=== PATIENT | male | born 1980 | race Caucasian/White ===

== ENCOUNTER 2020-01-04 19:13 | Emergency (ER) | payer OTHER, SELFPAY ==
[2020-01-04 19:14] VITALS: BP 131/82; PULSE 109; RESP 16; TEMP 36.4; O2SAT 97; BMI 34.4
[2020-01-04] MEDS: 0.9% Normal Saline 1,000 ML 1000 ML IV (19:50)
[2020-01-04] MEDS: Ondansetron 4 MG/2 ML Vial IV (19:51)
[2020-01-04] MEDS: Dicyclomine 20 MG/2 ML Vial IM (19:53)
[2020-01-04 19:58] LABS: Absolute Lymphocyte Count 1.21 X10^3/uL (0.83-4.51); Absolute Neutrophil Count 4.4 X10^3/uL (2.0-7.7); Basophil# 0.02 X10^3/uL; Basophil% 0.3 % (0-1); Eosinophil# 0.14 X10^3/uL; Eosinophils% 2.2 % (0-5); Hematocrit 52.5 % (40-54); Hemoglobin 17.6 g/dL (13.0-16.5); Lymphocyte # 1.21 X10^3/ul (4.0); Lymphocyte % 18.6 % (19-41); Mean Corp Hgb Conc 33.5 g/dL (32-36); Mean Corpuscular Hgb 27.8 pg (27.0-32.0); Mean Corpuscular Volume 83.1 fL (80-94); Mean Platelet Vol. 10.1 fl (6.2-12.0); Monocyte% 10.8 % (0-10); NRBC Flagged by Analyzer 0 % (0-5); Neutrophil # 4.41 X10^3/uL (2.7-7.7); Neutrophil % 67.8 % (47-70); Platelet Count 181 K/mm3 (150-450); RBC Distribution Width CV 13.2 % (11.6-14.6); RBC Distribution Width SD 39.9 fl (35.1-43.9); Red Blood Count 6.32 M/mm3 (4.6-6.2); White Blood Count 6.5 K/mm3 (4.4-11.0)
[2020-01-04 20:15] LABS: Anion Gap 3 (5-15); BUN 10 mg/dL (7-18); BUN/Creat Ratio 14.9 RATIO (10-20); Calcium,Total 8.4 mg/dL (8.5-10.1); Chloride 110 mmol/L (98-107); Creatinine, Serum 0.67 mg/dL (0.70-1.30); EST Glomerular Filtration Rate 140 mL/min (>60); Est Glom Filt Rate - Afr Amer 170 mL/min (>60); Estimated Creatinine Clearance 154.35 ml/min; Glucose 98 mg/dL (74-106); Potassium 3.7 mmol/L (3.5-5.1); Sodium Level 139 mmol/L (136-145)
--- NOTE | 2020-01-04 20:22 | CM.ED ---
SOCIAL WORK REASON FOR REFERRAL: NO PCP MET WITH PATIENT IN ROOM. INTRODUCED ROLE AND REASON FOR REFERRAL. PATIENT STATES DOES NOT HAVE PRIMARY CARE PHYSICIAN. LIST OF LOCAL PCP'S PROVIDED. PATIENT DENIES ANY FURTHER NEEDS AT THIS TIME. WADE GAONA, PRODUCT SUPPORT CONSULTANT.
--- NOTE | 2020-01-04 20:40 | ED.DCSUM_ITS ---
- ER Visit Summary Date of Service: 01/04/20 Chief Complaint: [Diarrhea] History of Present Illness: The patient is a 39 M [presents the emergency department complaint of diarrhea symptoms x3 days. Patient has been going quite frequently at times up to every 15 minutes. He complains of some intermittent diffuse abdominal cramping. He has had lots of nausea but no vomiting as of yet. He denies sick contacts. Has had decreased urine output. Patient states that he was on amoxicillin but that was about 6 months ago. No recent travel. Patient has no medical history. No prior surgical history. Denies eating any unusual or undercooked foods.] Physical Examination: [HEENT-PERRLA, EOMI. Cranial nerves II through XII grossly intact. TMs clear. Mucous membranes moist. No adenopathy. Cardiovascular-regular rate and rhythm without murmur or ectopy Lungs-clear to auscultation, chest wall stable without crepitus or subcu emphysema Abdomen-normoactive bowel sounds, soft. Patient has some mild diffuse tenderness on exam. There is no rebound, rigidity, or peritoneal signs. Extremities-intact ?4, normal range of motion, normal pulses, atraumatic] Test Results: [CBC with differential obtained was normal. Chemistries unremarkable.] Emergency Department Course and Treatment: [He was given a liter mostly fluid bolus. Patient given Zofran 4 mg IV. Patient was given Bentyl 20 mg IM. Stool culture was ordered for enteric pathogens however he was unable to get a sample in the department. Patient does not want me to write him a prescription to bring a sample in. I suspect likely viral etiology.] Treatment Plan: [Follow-up with primary care physician project production engineer for no doc. Patient advised to return if persistent diarrhea, vomiting, worsening abdominal pain, or condition should worsen anyway.] Given a prescription for Zofran and Bentyl. Advised to use Imodium as needed for diarrhea. Disposition: [Discharged home in stable condition] Impression: [Diarrhea-viral] This note was generated with [employer] dictation software. It may contain incorrect words, spelling, and punctuation that were not noted in review of the chart nathalie or to signing ED Disposition - Plan for ED Patient: Referrals: Care Physician,No Primary [Primary Care Provider] -
--- NOTE | 2020-01-04 20:44 | ED.DEP ---
ED Disposition - Plan for ED Patient: Instructions: GASTROENTERITIS, Viral (7y-Adult) Prescriptions: Dicyclomine HCl [Bentyl] 20 mg PO TIDAC #20 cap Prescription Printed Ondansetron [Zofran Odt] 4 mg PO Q8H PRN PRN #10 tab PRN Reason: Nausea Prescription Printed Referrals: Care Physician,No Primary [Primary Care Provider] - Josue Kunz MD [STAFF PHYSICIAN] - 3-5 Days
[2020-01-04 20:51] VITALS: BP 117/70; PULSE 85; RESP 18; O2SAT 98
== END 2020-01-04 20:55 | disposition home or self-care (01) ==
LOC: ED 19:46
PROVIDERS: Emergency Provider Emergency Medicine
DX: A08.4 Viral intestinal infection, unspecified (principal); F17.290 Nicotine dependence, other tobacco product, uncomplicated
CPT/HCPCS: 80048; 85025; 96361; 96372; 96374; 99283; J7030; J2405

== ENCOUNTER 2021-03-19 06:53 | Emergency (ER) | payer OTHER, SELFPAY ==
[2021-03-19 06:53] VITALS: BP 159/95; PULSE 87; RESP 18; TEMP 36.2; O2SAT 98; BMI 34.9
--- NOTE | 2021-03-19 07:03 | VDLE_ITS ---
Reason For Study: Pain RIGHT GSV is normal. CFV is compressible, spontaneous, phasic, competent and demonstrates normal augmentation. FV is compressible, spontaneous, phasic, competent and demonstrates normal augmentation. POP V is compressible, spontaneous, phasic, competent and demonstrates normal augmentation. T/P Trunk is compressible. PTV is compressible. RT PerV is compressible. Procedure This is a venous duplex using B-mode, color flow and spectral Doppler. Exam performed portable in ED. A preliminary report was called and/or faxed to [facility]. VL/Venous Duplex US, Unilateral Interpretation Summary There is no evidence of right lower extremity deep vein thrombosis. Right great saphenous vein appears patent and compressible segmentally. Ordering Physician: Nura Gorman Performed By: Mariama Ly RVT
--- NOTE | 2021-03-19 07:03 | RAD_ITS ---
STUDY: X-RAY - RIGHT KNEE REASON FOR EXAM: Right knee pain, no specific injury. TECHNIQUE: 4 view(s) of the knee. COMPARISON: None. FINDINGS: Normal visualized distal femur. Normal visualized proximal tibia and fibula. Normal proximal tibiofibular articulation. There is mild joint space narrowing of the medial femorotibial compartment. Normal lateral femorotibial compartment. Normal patellofemoral articulation. The soft tissue structures are unremarkable. RAD/Knee 4 or More Views IMPRESSION: Mild joint space narrowing of the medial femorotibial compartment. Otherwise, unremarkable x-ray examination of the right knee. Electronically Signed: William Zhong MD at 8:11 EDT Tel , Service support ,
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
== END 2021-03-19 08:27 | disposition home or self-care (01) ==
PROVIDERS: Emergency Provider Emergency Medicine
DX: M25.561 Pain in right knee (principal); I83.811 Varicose veins of right lower extremity with pain; F17.200 Nicotine dependence, unspecified, uncomplicated; Z83.2 Family history of diseases of the blood and blood-forming organs and certain disorders involving the immune mechanism
CPT/HCPCS: 73564; 93971; 99282